=== PATIENT | male | born 1955 | race Caucasian/White ===

== ENCOUNTER 2019-07-04 11:03 | Emergency (ER) | payer OTHER, MEDICARE, MEDICAID ==
[2019-07-04] MEDS ORDERED: Sodium Chloride 0.9% 2.5 ML Syringe FLUSH PRN (11:07)
[2019-07-04] MEDS ORDERED: Sodium Chloride 0.9% 10 ML Syringe FLUSH PRN (11:07)
[2019-07-04] MEDS ORDERED: Nitroglycerin 0.4 MG Tab.SL SL PRN (11:17)
--- NOTE | 2019-07-04 11:22 | EDM.PDOC ---
ED HPI GENERAL MEDICAL PROBLEM - General Chief Complaint: Chest Pain Stated Complaint: CHEST PAIN Time Seen by Provider: 07/04/19 11:07 Source of Information: Reports: Patient History Limitations: Reports: No Limitations - History of Present Illness INITIAL COMMENTS - FREE TEXT/NARRATIVE: HISTORY AND PHYSICAL: History of present illness: Patient is a 63-year-old male presents to the ED today with concern of left- sided chest pain that has been ongoing 1 week. Patient states starting yesterday the chest pain has become more noticeable and is continuing today and he feels more short of breath. Patient states the chest pain is constant. Patient states he did take 325 mg of aspirin at 10 this morning before coming to the ED. Patient states he did have a heart attack 6 weeks ago and had a bypass surgery but is unsure of how many vessels. Patient states he had a follow -up in my not a few weeks ago and was told that he has fluid in the left side of his chest that they plan to remove at his next visit. Patient states he is unsure when his next appointment is. He states he also has a history of type 2 diabetes and hypertension. Patient denies any other symptoms or concerns. Patient denies fever, chills, or cough. Denies headache, neck stiff ness, change in vision, syncope, or near syncope. Denies nausea, vomiting, abdominal pain, diarrhea, constipation, or dysuria. Has not noted any blood in urine or stool. Patient has been eating and drinking appropriately. Review of systems: As per history of present illness and below otherwise all systems reviewed and negative. Past medical history: As per history of present illness and as reviewed below otherwise noncontributory. Surgical history: As per history of present illness and as reviewed below otherwise noncontributory. Social history: See social history for further information Family history: As per history of present illness and as reviewed below otherwise noncontributory. Physical exam: General: Patient is alert, oriented, and in no acute distress. Patient laying comfortably on exam table. HEENT: Atraumatic, normocephalic, pupils equal and reactive bilaterally, negative for conjunctival pallor or scleral icterus, mucous membranes moist, TMs normal bilaterally, throat clear, neck supple, nontender, trachea midline. No drooling or trismus noted. No meningeal signs. No hot potato voice noted. Lungs: Lung sounds are diminished on the left to auscultation but clear, chest nontender. Heart: S1S2, regular rate and rhythm without overt murmur Abdomen: Soft, nondistended, nontender. Negative for masses or hepatosplenomegaly. Negative for costovertebral tenderness. Pelvis: Stable nontender. Genitourinary: Deferred. Rectal: Deferred. Skin: Intact, warm, dry. No lesions or rashes noted. Extremities: Atraumatic, negative for cords or calf pain. Neurovascular unremarkable. Neuro: Awake, alert, oriented. Cranial nerves II through XII unremarkable. Cerebellum unremarkable. Motor and sensory unremarkable throughout. Exam nonfocal. Notes: Dr. Salas was consulted on patient and will admit to observation. Voices understanding and is agreeable to plan of care. Denies any further questions or concerns at this time. Diagnostics: CBC, CMP, UA, EKG, chest x-ray, troponin Therapeutics: (Patient took 325mg ASA at 10am before coming to ED), nitro Impression: Chest pain Left sided pleural effusion Dyspnea Plan: 1. Admit to observation to Dr. Salas Definitive disposition and diagnosis as appropriate pending reevaluation and review of above. Left Chest Pain Score (Numeric/FACES): 3 - Related Data Allergies Allergy/AdvReac Type Severity Reaction Status Date / Time bandaid Allergy Rash Uncoded 07/04/19 11:14 Home Meds: Home Meds . [Unable to Verify Home Med List] 07/04/19 [History] ED ROS GENERAL - Review of Systems Review Of Systems: Comprehensive ROS is negative, except as noted in HPI. ED EXAM, GENERAL - Physical Exam Exam: See Below (See dictation) Course - Vital Signs Last Recorded V/S: Last Vital Signs Temp Pulse 80 07/04/19 13:04 Resp 16 07/04/19 13:04 BP 114/62 07/04/19 13:04 Pulse Ox 98 07/04/19 13:04 - Orders/Labs/Meds Orders: Active Orders 24 hr Category Date Time Status Admission Status [Patient Status] [ADT] Stat ADT 07/04/19 13:22 Ordered EKG 12 Lead [EKG Documentation Completion] [RC] STAT Care 07/04/19 11:50 Active Nitroglycerin [Nitrostat] Med 07/04/19 11:17 Active 0.4 mg SL Q5M PRN Sodium Chloride 0.9% [Saline Flush] Med 07/04/19 11:07 Active 10 ml FLUSH ASDIRECTED PRN Sodium Chloride 0.9% [Saline Flush] Med 07/04/19 11:07 Active 2.5 ml FLUSH ASDIRECTED PRN Saline Lock Insert [OM.PC] Stat Oth 07/04/19 11:07 Ordered Medication Orders Nitroglycerin (Nitrostat) 0.4 mg SL Q5M PRN PRN Reason: Chest Pain Last Admin: 07/04/19 11:31 Dose: 0.4 mg Sodium Chloride (Saline Flush) 10 ml FLUSH ASDIRECTED PRN PRN Reason: Keep Vein Open Last Admin: 07/04/19 11:30 Dose: 10 ml Sodium Chloride (Saline Flush) 2.5 ml FLUSH ASDIRECTED PRN PRN Reason: Keep Vein Open Last Admin: 07/04/19 11:30 Dose: 2.5 ml Labs: Laboratory Tests 07/04/19 07/04/19 07/04/19 Range/Units 11:11 11:11 11:11 WBC 13.37 H (4.0-11.0) K/uL RBC 3.79 L (4.50-5.90) M/uL Hgb 10.1 L (13.0-17.0) g/dL Hct 33.0 L (38.0-50.0) % MCV 87.1 (80.0-98.0) fL MCH 26.6 L (27.0-32.0) pg MCHC 30.6 L (31.0-37.0) g/dL RDW Std Deviation 50.5 (28.0-62.0) fl RDW Coeff of Kelton 16 H (11.0-15.0) % Plt Count 517 H (150-400) K/uL MPV 8.60 (7.40-12.00) fL Neut % (Auto) 76.3 (48.0-80.0) % Lymph % (Auto) 9.3 L (16.0-40.0) % [place] % (Auto) 9.4 (0.0-15.0) % Eos % (Auto) 4.7 (0.0-7.0) % Baso % (Auto) 0.3 (0.0-1.5) % Neut # (Auto) 10.2 H (1.4-5.7) K/uL Lymph # (Auto) 1.2 (0.6-2.4) K/uL [place] # (Auto) 1.3 H (0.0-0.8) K/uL Eos # (Auto) 0.6 (0.0-0.7) K/uL Baso # (Auto) 0.0 (0.0-0.1) K/uL Nucleated RBC % 0.0 /100WBC Nucleated RBCs # 0 K/uL INR 1.05 Sodium 136 (136-148) mmol/L Potassium 4.3 (3.5-5.1) mmol/L Chloride 99 (98-107) mmol/L Carbon Dioxide 24.0 (21.0-32.0) mmol/L BUN 15 (7.0-18.0) mg/dL Creatinine 1.1 (0.8-1.3) mg/dL Est Cr Clr Drug Dosing 65.64 mL/min Estimated GFR (MDRD) > 60.0 ml/min Glucose 125 H (74-106) mg/dL Calcium 8.7 (8.5-10.1) mg/dL Total Bilirubin 0.4 (0.2-1.0) mg/dL AST 15 (15-37) IU/L ALT 11 L (14-63) IU/L Alkaline Phosphatase 85 (46-116) U/L Troponin I < 0.050 (0.000-0.056) ng/mL Total Protein 8.1 (6.4-8.2) g/dL Albumin 3.2 L (3.4-5.0) g/dL Globulin 4.9 H (2.6-4.0) g/dL Albumin/Globulin Ratio 0.7 L (0.9-1.6) Lipase 50 L (73-393) U/L Urine Color Urine Appearance Urine pH (5.0-8.0) Ur Specific [place] (1.001-1.035) Urine Protein (NEGATIVE) mg/dL Urine Glucose (UA) (NEGATIVE) mg/dL Urine Ketones (NEGATIVE) mg/dL Urine Occult Blood (NEGATIVE) Urine Nitrite (NEGATIVE) Urine Bilirubin (NEGATIVE) Urine Urobilinogen (<2.0) EU/dL Ur Leukocyte Esterase (NEGATIVE) 07/04/19 Range/Units 12:39 WBC (4.0-11.0) K/uL RBC (4.50-5.90) M/uL Hgb (13.0-17.0) g/dL Hct (38.0-50.0) % MCV (80.0-98.0) fL MCH (27.0-32.0) pg MCHC (31.0-37.0) g/dL RDW Std Deviation (28.0-62.0) fl RDW Coeff of Kelton (11.0-15.0) % Plt Count (150-400) K/uL MPV (7.40-12.00) fL Neut % (Auto) (48.0-80.0) % Lymph % (Auto) (16.0-40.0) % [place] % (Auto) (0.0-15.0) % Eos % (Auto) (0.0-7.0) % Baso % (Auto) (0.0-1.5) % Neut # (Auto) (1.4-5.7) K/uL Lymph # (Auto) (0.6-2.4) K/uL [place] # (Auto) (0.0-0.8) K/uL Eos # (Auto) (0.0-0.7) K/uL Baso # (Auto) (0.0-0.1) K/uL Nucleated RBC % /100WBC Nucleated RBCs # K/uL INR Sodium (136-148) mmol/L Potassium (3.5-5.1) mmol/L Chloride (98-107) mmol/L Carbon Dioxide (21.0-32.0) mmol/L BUN (7.0-18.0) mg/dL Creatinine (0.8-1.3) mg/dL Est Cr Clr Drug Dosing mL/min Estimated GFR (MDRD) ml/min Glucose (74-106) mg/dL Calcium (8.5-10.1) mg/dL Total Bilirubin (0.2-1.0) mg/dL AST (15-37) IU/L ALT (14-63) IU/L Alkaline Phosphatase (46-116) U/L Troponin I (0.000-0.056) ng/mL Total Protein (6.4-8.2) g/dL Albumin (3.4-5.0) g/dL Globulin (2.6-4.0) g/dL Albumin/Globulin Ratio (0.9-1.6) Lipase (73-393) U/L Urine Color YELLOW Urine Appearance CLEAR Urine pH 6.5 (5.0-8.0) Ur Specific [place] 1.010 (1.001-1.035) Urine Protein NEGATIVE (NEGATIVE) mg/dL Urine Glucose (UA) NEGATIVE (NEGATIVE) mg/dL Urine Ketones NEGATIVE (NEGATIVE) mg/dL Urine Occult Blood NEGATIVE (NEGATIVE) Urine Nitrite NEGATIVE (NEGATIVE) Urine Bilirubin NEGATIVE (NEGATIVE) Urine Urobilinogen 0.2 (<2.0) EU/dL Ur Leukocyte Esterase NEGATIVE (NEGATIVE) Meds: Medications Generic Name Dose Route Start Last Admin Trade Name Freq PRN Reason Stop Dose Admin Nitroglycerin 0.4 mg 07/04/19 11:17 07/04/19 11:31 Nitrostat SL 0.4 mg Q5M PRN Administration Chest Pain Sodium Chloride 10 ml 07/04/19 11:07 07/04/19 11:30 Saline Flush FLUSH 10 ml ASDIRECTED PRN Administration Keep Vein Open Sodium Chloride 2.5 ml 07/04/19 11:07 07/04/19 11:30 Saline Flush FLUSH 2.5 ml ASDIRECTED PRN Administration Keep Vein Open Discontinued Medications Generic Name Dose Route Start Last Admin Trade Name Frecasey PRN Reason Stop Dose Admin Sodium Chloride 1,000 mls @ 999 mls/hr 07/04/19 11:49 07/04/19 12:40 Normal Saline IV 07/04/19 12:49 999 mls/hr .Bolus ONE Administration Departure - Departure Time of Disposition: 13:24 Disposition: Refer to Observation Clinical Impression: Pleural effusion Chest pain Qualifiers: Chest pain type: unspecified Qualified Code(s): R07.9 - Chest pain, unspecified Dyspnea Qualifiers: Dyspnea type: unspecified Qualified Code(s): R06.00 - Dyspnea, unspecified - Discharge Information Forms: ED Department Discharge - My Orders Last 24 Hours: My Active Orders 07/04/19 11:07 Sodium Chloride 0.9% [Saline Flush] 10 ml FLUSH ASDIRECTED PRN Sodium Chloride 0.9% [Saline Flush] 2.5 ml FLUSH ASDIRECTED PRN Saline Lock Insert [OM.PC] Stat 07/04/19 11:17 Nitroglycerin [Nitrostat] 0.4 mg SL Q5M PRN 07/04/19 11:50 EKG 12 Lead [EKG Documentation Completion] [RC] STAT 07/04/19 13:22 Admission Status [Patient Status] [ADT] Stat - Assessment/Plan Last 24 Hours: My Active Orders 07/04/19 11:07 Sodium Chloride 0.9% [Saline Flush] 10 ml FLUSH ASDIRECTED PRN Sodium Chloride 0.9% [Saline Flush] 2.5 ml FLUSH ASDIRECTED PRN Saline Lock Insert [OM.PC] Stat 07/04/19 11:17 Nitroglycerin [Nitrostat] 0.4 mg SL Q5M PRN 07/04/19 11:50 EKG 12 Lead [EKG Documentation Completion] [RC] STAT 07/04/19 13:22 Admission Status [Patient Status] [ADT] Stat
[2019-07-04 11:43] LABS: BLOOD UREA NITROGEN,BUN 15 mg/dL (7.0-18.0); CHLORIDE,CL 99 mmol/L (98-107); GLUCOSE RANDOM 125 mg/dL (74-106); LIPASE 50 U/L (73-393); POTASSIUM,K 4.3 mmol/L (3.5-5.1); SODIUM,NA 136 mmol/L (136-148)
[2019-07-04] MEDS ORDERED: Sodium Chloride 0.9% 1,000 ML IV ONE (11:49)
--- NOTE | 2019-07-04 13:02 | CR ---
Chest: AP portable view of the chest was obtained. Comparison: No prior chest x-ray. Moderately large left-sided pleural effusion is seen. Right lung is clear. Heart size difficult to determine due to silhouetting from the pleural effusion. Prior sternotomy is noted. Bony structures are grossly intact. Impression: Moderately large left-sided pleural effusion. Diagnostic code #3 MTDD
== END 2019-07-04 15:40 | disposition other institution (70) ==
LOC: MW.ED 11:03
DX: J90 Pleural effusion, not elsewhere classified (principal); E11.9 Type 2 diabetes mellitus without complications; I10 Essential (primary) hypertension; Z91.048 Other nonmedicinal substance allergy status; Z95.1 Presence of aortocoronary bypass graft
CPT/HCPCS: 71045; 80053; 81003; 83690; 84484; 85025; 85610; 93005; 96360; 96361; 99285; A9270; J7040; J7030

== ENCOUNTER 2019-11-02 15:03 | Observation (INO) | payer MEDICARE, MEDICAID ==
--- NOTE | 2019-11-02 15:40 | EDM.PDOC ---
ED HPI GENERAL MEDICAL PROBLEM - General Chief Complaint: Lower Extremity Injury/Pain Stated Complaint: FEET SWOLLEN Time Seen by Provider: 11/02/19 15:36 Source of Information: Reports: Patient History Limitations: Reports: No Limitations - History of Present Illness INITIAL COMMENTS - FREE TEXT/NARRATIVE: HISTORY AND PHYSICAL: History of present illness: Patient is a 64-year-old male presents to the ED with complaint of bilateral foot swelling. Patient states he has had swelling in his feet for the past week. He reports some shortness of breath on exertion x 2-3 days. He denies chest pain, dyspnea at rest, orthopnea, cough, fevers, chills. He states he is on lasix. He was hospitalized about 6 weeks ago for pneumonia. Patient has history of CABG April 2019 on Plavix and is diabetic. Patient states that he does have a history of anemia since CABG and states he has been seen for this and his "they do not know where bleeding is coming from. " He denies history of blood transfusions. Review of systems: As per history of present illness and below otherwise all systems reviewed and negative. Past medical history: As per history of present illness and as reviewed below otherwise noncontributory. Surgical history: As per history of present illness and as reviewed below otherwise noncontributory. Social history: No reported history of drug or alcohol abuse. Family history: As per history of present illness and as reviewed below otherwise noncontributory. Physical exam: General: Patient sitting comfortably in no acute distress and nontoxic appearing HEENT: Atraumatic, normocephalic, pupils reactive, negative for conjunctival pallor or scleral icterus, mucous membranes moist, throat clear, neck supple, nontender, trachea midline. No meningeal signs. Lungs: Clear to auscultation, breath sounds equal bilaterally, chest nontender. Heart: S1S2, regular, negative for clicks, rubs, or overt murmur. Abdomen: Soft, nondistended, nontender. Negative for masses or hepatosplenomegaly. Negative for costovertebral tenderness. No rigidity, rebound , guarding. Pelvis: Stable nontender. Genitourinary: Deferred. Rectal: Hemoccult positive Extremities: Ulcerative like lesions to the right heel with healthy appearing granulation tissue. Minimal pitting edema to the ankle. There is no surrounding erythema or warmth. Atraumatic, negative for cords or calf pain. Neurovascular unremarkable. Neuro: Awake, alert, oriented. Cranial nerves II through XII unremarkable. Cerebellum unremarkable. Motor and sensory unremarkable throughout. Exam nonfocal. Notes: Diagnostics: CBC, CMP, troponin, BNP, EKG, CXR, right foot x-ray Therapeutics: 2 units RBCs Prescriptions: Impression: GI bleed, anemia, dyspnea Plan: Discussed with Dr. Tompkins patient will be admitted to observation for blood transfusion and further evaluation. Definitive disposition and diagnosis as appropriate pending reevaluation and review of above. right foot Pain Score (Numeric/FACES): 9 - Related Data Allergies Allergy/AdvReac Type Severity Reaction Status Date / Time Latex, Natural Rubber Allergy Other Verified 11/02/19 15:20 bandaid Allergy Rash Uncoded 07/04/19 11:14 lidocaine patches adhesive Allergy Other Uncoded 11/02/19 15:21 Home Meds: Home Meds Clopidogrel [Plavix] 75 mg PO DAILY 11/02/19 [History] Furosemide [Lasix] 40 mg PO BID 11/02/19 [History] Gabapentin [Neurontin] 300 mg PO BID 11/02/19 [History] Levothyroxine 75 mcg PO ACBREAKFAST 11/02/19 [History] Lisinopril [Zestril] 40 mg PO DAILY 11/02/19 [History] Metoprolol Succinate 50 mg PO DAILY 11/02/19 [History] Rosuvastatin [Crestor] 10 mg PO DAILY 11/02/19 [History] glyBURIDE [Glyburide] 10 mg PO DAILY 11/02/19 [History] metFORMIN [Glucophage] 1,000 mg PO BIDMEALS 11/02/19 [History] Past Medical History Cardiovascular History: Reports: Heart Failure, Hypertension, [place] Endocrine/Metabolic History: Reports: Diabetes, Type II - Past Surgical History Cardiovascular Surgical History: Reports: Coronary Artery Bypass, Coronary Artery Stent Musculoskeletal Surgical History: Reports: Arthroscopic Procedure, Other (See Below) Other Musculoskeletal Surgeries/Procedures:: right ankle/foot sx Social & Family History - Family History Family Medical History: Noncontributory - Tobacco Use Smoking Status *Q: Never Smoker - Recreational Drug Use Recreational Drug Use: No Review of Systems - Review of Systems Review Of Systems: Comprehensive ROS is negative, except as noted in HPI. ED EXAM, GENERAL - Physical Exam Exam: See Below (see dictation) Course - Vital Signs Last Recorded V/S: Last Vital Signs Temp 96.6 F L 11/02/19 16:50 Pulse 62 11/02/19 16:50 Resp 16 11/02/19 16:50 BP 144/54 H 11/02/19 16:50 Pulse Ox 99 11/02/19 16:50 - Orders/Labs/Meds Orders: Active Orders 24 hr Category Date Time Status Admission Status [Patient Status] [ADT] Stat ADT 11/02/19 17:16 Ordered EKG Documentation Completion [RC] STAT Care 11/02/19 15:35 Active RED BLOOD CELLS LP [BBK] Stat Lab 11/02/19 17:06 Received TYPE AND SCREEN [BBK] Stat Lab 11/02/19 17:06 Received Transfuse RBC [Transfuse Red Blood Cells] [COMM] Stat Oth 11/02/19 17:08 Ordered Labs: Laboratory Tests 11/02/19 11/02/19 11/02/19 Range/Units 16:10 16:10 16:10 WBC 5.51 (4.0-11.0) K/uL RBC 3.24 L (4.50-5.90) M/uL Hgb 7.7 L (13.0-17.0) g/dL Hct 26.3 L (38.0-50.0) % MCV 81.2 (80.0-98.0) fL MCH 23.8 L (27.0-32.0) pg MCHC 29.3 L (31.0-37.0) g/dL RDW Std Deviation 58.6 (28.0-62.0) fl RDW Coeff of Kelton 20 H (11.0-15.0) % Plt Count 263 (150-400) K/uL MPV 8.50 (7.40-12.00) fL Neut % (Auto) 60.6 (48.0-80.0) % Lymph % (Auto) 26.0 (16.0-40.0) % [place] % (Auto) 8.3 (0.0-15.0) % Eos % (Auto) 4.7 (0.0-7.0) % Baso % (Auto) 0.4 (0.0-1.5) % Neut # (Auto) 3.3 (1.4-5.7) K/uL Lymph # (Auto) 1.4 (0.6-2.4) K/uL [place] # (Auto) 0.5 (0.0-0.8) K/uL Eos # (Auto) 0.3 (0.0-0.7) K/uL Baso # (Auto) 0.0 (0.0-0.1) K/uL Nucleated RBC % 0.0 /100WBC Nucleated RBCs # 0 K/uL INR Sodium 140 (136-148) mmol/L Potassium 3.5 (3.5-5.1) mmol/L Chloride 103 (98-107) mmol/L Carbon Dioxide 29.9 (21.0-32.0) mmol/L BUN 16 (7.0-18.0) mg/dL Creatinine 1.0 (0.8-1.3) mg/dL Est Cr Clr Drug Dosing 71.25 mL/min Estimated GFR (MDRD) > 60.0 ml/min Glucose 171 H (74-106) mg/dL Calcium 8.5 (8.5-10.1) mg/dL Total Bilirubin 0.4 (0.2-1.0) mg/dL AST 22 (15-37) IU/L ALT 32 (14-63) IU/L Alkaline Phosphatase 47 (46-116) U/L Troponin I < 0.050 (0.000-0.056) ng/mL B-Natriuretic Peptide 340 H (<100) PG/ML Total Protein 6.7 (6.4-8.2) g/dL Albumin 3.3 L (3.4-5.0) g/dL Globulin 3.4 (2.6-4.0) g/dL Albumin/Globulin Ratio 1.0 (0.9-1.6) 11/02/19 Range/Units 16:10 WBC (4.0-11.0) K/uL RBC (4.50-5.90) M/uL Hgb (13.0-17.0) g/dL Hct (38.0-50.0) % MCV (80.0-98.0) fL MCH (27.0-32.0) pg MCHC (31.0-37.0) g/dL RDW Std Deviation (28.0-62.0) fl RDW Coeff of [place] (11.0-15.0) % Plt Count (150-400) K/uL MPV (7.40-12.00) fL Neut % (Auto) (48.0-80.0) % Lymph % (Auto) (16.0-40.0) % [place] % (Auto) (0.0-15.0) % Eos % (Auto) (0.0-7.0) % Baso % (Auto) (0.0-1.5) % Neut # (Auto) (1.4-5.7) K/uL Lymph # (Auto) (0.6-2.4) K/uL [place] # (Auto) (0.0-0.8) K/uL Eos # (Auto) (0.0-0.7) K/uL Baso # (Auto) (0.0-0.1) K/uL Nucleated RBC % /100WBC Nucleated RBCs # K/uL INR 1.03 Sodium (136-148) mmol/L Potassium (3.5-5.1) mmol/L Chloride (98-107) mmol/L Carbon Dioxide (21.0-32.0) mmol/L BUN (7.0-18.0) mg/dL Creatinine (0.8-1.3) mg/dL Est Cr Clr Drug Dosing mL/min Estimated GFR (MDRD) ml/min Glucose (74-106) mg/dL Calcium (8.5-10.1) mg/dL Total Bilirubin (0.2-1.0) mg/dL AST (15-37) IU/L ALT (14-63) IU/L Alkaline Phosphatase (46-116) U/L Troponin I (0.000-0.056) ng/mL B-Natriuretic Peptide (<100) PG/ML Total Protein (6.4-8.2) g/dL Albumin (3.4-5.0) g/dL Globulin (2.6-4.0) g/dL Albumin/Globulin Ratio (0.9-1.6) Departure - Departure Time of Disposition: 17:20 Disposition: Refer to Observation Condition: Good Clinical Impression: GI bleed, Anemia Dyspnea Qualifiers: Dyspnea type: unspecified Qualified Code(s): R06.00 - Dyspnea, unspecified - Discharge Information Referrals: PCP,None [Primary Care Provider] - Forms: ED Department Discharge Sepsis Event Note - Evaluation Sepsis Screening Result: No Definite Risk - Focused Exam Vital Signs: Vital Signs Temp Pulse Resp BP Pulse Ox 11/02/19 16:50 96.6 F L 62 16 144/54 H 99 11/02/19 15:38 96.6 F L 65 18 157/60 H 100 11/02/19 15:18 96.5 F L 69 18 158/52 H 99 Date Exam was Performed: 11/02/19 Time Exam was Performed: 17:18 - My Orders Last 24 Hours: My Active Orders 11/02/19 15:35 EKG Documentation Completion [RC] STAT 11/02/19 17:06 RED BLOOD CELLS LP [BBK] Stat TYPE AND SCREEN [BBK] Stat 11/02/19 17:08 Transfuse RBC [Transfuse Red Blood Cells] [COMM] Stat 11/02/19 17:16 Admission Status [Patient Status] [ADT] Stat - Assessment/Plan Last 24 Hours: My Active Orders 11/02/19 15:35 EKG Documentation Completion [RC] STAT 11/02/19 17:06 RED BLOOD CELLS LP [BBK] Stat TYPE AND SCREEN [BBK] Stat 11/02/19 17:08 Transfuse RBC [Transfuse Red Blood Cells] [COMM] Stat 11/02/19 17:16 Admission Status [Patient Status] [ADT] Stat
[2019-11-02 16:51] LABS: BLOOD UREA NITROGEN,BUN 16 mg/dL (7.0-18.0); CARBON DIOXIDE,CO2 29.9 mmol/L (21.0-32.0); CHLORIDE,CL 103 mmol/L (98-107); GLUCOSE RANDOM 171 mg/dL (74-106); POTASSIUM,K 3.5 mmol/L (3.5-5.1); SODIUM,NA 140 mmol/L (136-148)
--- NOTE | 2019-11-02 17:02 | CR ---
Chest: 2 views of the chest were obtained. Comparison: Prior chest x-ray of 07/26/19. Mild blunting of the lateral left costophrenic angle is seen. Lungs otherwise are clear. Heart size and mediastinum are normal. Sternotomy wires are seen. Mild degenerative change is scattered within the spine. Impression: 1. Blunting of the lateral left costophrenic angle either due to minimal residual pleural effusion or development of pleural thickening. 2. Nothing acute is otherwise seen. Diagnostic code #2 Study was dictated in MDT
--- NOTE | 2019-11-02 17:02 | CR ---
Right foot: 2 views of the right foot were obtained. Comparison: No previous right foot study. Bony structures are somewhat osteopenic. No discrete fracture or other bony abnormality is appreciated. Old fracture deformity noted within the distal tibia containing a single orthopedic screw. Fusion is noted at the tibiotalar joint. Impression: 1. Osteopenia. Fusion of the tibiotalar joint. 2. Nothing acute is definitely seen. Diagnostic code #2 Study was dictated in MDT
[2019-11-02] MEDS ORDERED: Ondansetron 4 MG/2 ML SDV IVPUSH PRN (17:58)
[2019-11-02] MEDS ORDERED: Pantoprazole 80 MG in Sodium Chloride 0.9% 10 ML IV ONE (18:17)
--- NOTE | 2019-11-02 18:35 | PCM.HP.2 ---
H&P History of Present Illness - General Date of Service: 11/02/19 Admit Problem/Dx: Admission Diagnosis/Problem Admission Diagnosis/Problem Anemia Source of Information: Patient History Limitations: Reports: No Limitations - History of Present Illness Initial Comments - Free Text/Narative: 64-year-old male presented complaining of shortness of breath and bilateral leg swelling for the past 1 week. He has a PMH of AR s/p CABG, CHF, DM type 2 and HTN. He has also noted a 5 lbs weight gain over the past 1 week as well. He also complains of right foot ulcers that was first noticed 1.5 months ago and has been applying antibiotic ointment. Patient denied having any fevers, chills , headache, sore throat, cough, bloody stools or blood in urine. He does complain of pain in right foot and numbness in b/l legs. In the ER, hgb was 7.7 and Hemoccult test was positive. Troponin was negative. BNP 340. CXR showed minimal left pleural effusion. PRBC's 2 units type and crossed. Admitted for further evaluation and treatment. right foot Pain Score (Numeric/FACES): 9 - Related Data Allergies/Adverse Reactions: Allergies Allergy/AdvReac Type Severity Reaction Status Date / Time niacin Allergy Severe Hives Verified 11/02/19 19:48 Latex, Natural Rubber Allergy Other Verified 11/02/19 19:47 bandaid Allergy Rash Uncoded 11/02/19 19:47 lidocaine patches adhesive Allergy Other Uncoded 11/02/19 19:47 Home Medications: Home Meds Clopidogrel [Plavix] 75 mg PO DAILY 11/02/19 [History] Furosemide [Lasix] 40 mg PO BID 11/02/19 [History] Gabapentin [Neurontin] 300 mg PO BID 11/02/19 [History] Levothyroxine 75 mcg PO ACBREAKFAST 11/02/19 [History] Levothyroxine 75 mcg PO ACBREAKFAST 11/02/19 [History] Lisinopril [Zestril] 40 mg PO DAILY 11/02/19 [History] Metoprolol Succinate 50 mg PO DAILY 11/02/19 [History] Rosuvastatin [Crestor] 10 mg PO DAILY 11/02/19 [History] glyBURIDE [Glyburide] 10 mg PO DAILY 11/02/19 [History] metFORMIN [Glucophage] 1,000 mg PO BIDMEALS 11/02/19 [History] Past Medical History Cardiovascular History: Reports: Heart Failure, Hypertension, AR Endocrine/Metabolic History: Reports: Diabetes, Type II - Past Surgical History Cardiovascular Surgical History: Reports: Coronary Artery Bypass, Coronary Artery Stent Musculoskeletal Surgical History: Reports: Arthroscopic Procedure, Other (See Below) Other Musculoskeletal Surgeries/Procedures:: right ankle/foot sx Social & Family History - Family History Family Medical History: Noncontributory - Tobacco Use Smoking Status *Q: Never Smoker - Recreational Drug Use Recreational Drug Use: No H&P Review of Systems - Review of Systems: Review Of Systems: Comprehensive ROS is negative, except as noted in HPI. Exam - Exam Exam: See Below - Vital Signs Vital Signs: Last Vital Signs Temp 96.6 F L 11/02/19 16:50 Pulse 62 11/02/19 16:50 Resp 16 11/02/19 16:50 BP 144/54 H 11/02/19 16:50 Pulse Ox 99 11/02/19 16:50 Weight: 200 lb 9.93 oz - Exam General: Alert, Oriented, Cooperative, Other (NAD) HEENT: Conjunctiva Clear, EOMI, Hearing Intact, Posterior Pharynx Clear, Pupils Equal, Pupils Reactive Neck: Supple, Trachea Midline Lungs: Normal Respiratory Effort, Other (mild rales in b/l bases) Cardiovascular: Regular Rate, Regular Rhythm GI/Abdominal Exam: Normal Bowel Sounds, Soft, Non-Tender, No Distention Extremities: Other (Right Foot: 2 ulcers on sole, 2 cm x 1 cm with brown eschar) Skin: Other (Pale) Neurological: Cranial Nerves Intact, Strength Equal Bilateral, Normal Speech, Normal Tone Neuro Extensive - Mental Status: Alert, Oriented x3, Normal Mood/Affect Psychiatric: Alert, Normal Affect, Normal Mood - Patient Data Lab Results Last 24 hrs: Laboratory Results - last 24 hr 11/02/19 11/02/19 11/02/19 Range/Units 16:10 16:10 16:10 WBC 5.51 (4.0-11.0) K/uL RBC 3.24 L (4.50-5.90) M/uL Hgb 7.7 L (13.0-17.0) g/dL Hct 26.3 L (38.0-50.0) % MCV 81.2 (80.0-98.0) fL MCH 23.8 L (27.0-32.0) pg MCHC 29.3 L (31.0-37.0) g/dL RDW Std Deviation 58.6 (28.0-62.0) fl RDW Coeff of Kelton 20 H (11.0-15.0) % Plt Count 263 (150-400) K/uL MPV 8.50 (7.40-12.00) fL Neut % (Auto) 60.6 (48.0-80.0) % Lymph % (Auto) 26.0 (16.0-40.0) % Towns % (Auto) 8.3 (0.0-15.0) % Eos % (Auto) 4.7 (0.0-7.0) % Baso % (Auto) 0.4 (0.0-1.5) % Neut # (Auto) 3.3 (1.4-5.7) K/uL Lymph # (Auto) 1.4 (0.6-2.4) K/uL Towns # (Auto) 0.5 (0.0-0.8) K/uL Eos # (Auto) 0.3 (0.0-0.7) K/uL Baso # (Auto) 0.0 (0.0-0.1) K/uL Nucleated RBC % 0.0 /100WBC Nucleated RBCs # 0 K/uL INR Sodium 140 (136-148) mmol/L Potassium 3.5 (3.5-5.1) mmol/L Chloride 103 (98-107) mmol/L Carbon Dioxide 29.9 (21.0-32.0) mmol/L BUN 16 (7.0-18.0) mg/dL Creatinine 1.0 (0.8-1.3) mg/dL Est Cr Clr Drug Dosing 71.25 mL/min Estimated GFR (MDRD) > 60.0 ml/min Glucose 171 H (74-106) mg/dL Calcium 8.5 (8.5-10.1) mg/dL Total Bilirubin 0.4 (0.2-1.0) mg/dL AST 22 (15-37) IU/L ALT 32 (14-63) IU/L Alkaline Phosphatase 47 (46-116) U/L Troponin I < 0.050 (0.000-0.056) ng/mL B-Natriuretic Peptide 340 H (<100) PG/ML Total Protein 6.7 (6.4-8.2) g/dL Albumin 3.3 L (3.4-5.0) g/dL Globulin 3.4 (2.6-4.0) g/dL Albumin/Globulin Ratio 1.0 (0.9-1.6) Blood Type Antibody Screen Crossmatch 11/02/19 11/02/19 Range/Units 16:10 17:06 WBC (4.0-11.0) K/uL RBC (4.50-5.90) M/uL Hgb (13.0-17.0) g/dL Hct (38.0-50.0) % MCV (80.0-98.0) fL MCH (27.0-32.0) pg MCHC (31.0-37.0) g/dL RDW Std Deviation (28.0-62.0) fl RDW Coeff of Kelton (11.0-15.0) % Plt Count (150-400) K/uL MPV (7.40-12.00) fL Neut % (Auto) (48.0-80.0) % Lymph % (Auto) (16.0-40.0) % Towns % (Auto) (0.0-15.0) % Eos % (Auto) (0.0-7.0) % Baso % (Auto) (0.0-1.5) % Neut # (Auto) (1.4-5.7) K/uL Lymph # (Auto) (0.6-2.4) K/uL Towns # (Auto) (0.0-0.8) K/uL Eos # (Auto) (0.0-0.7) K/uL Baso # (Auto) (0.0-0.1) K/uL Nucleated RBC % /100WBC Nucleated RBCs # K/uL INR 1.03 Sodium (136-148) mmol/L Potassium (3.5-5.1) mmol/L Chloride (98-107) mmol/L Carbon Dioxide (21.0-32.0) mmol/L BUN (7.0-18.0) mg/dL Creatinine (0.8-1.3) mg/dL Est Cr Clr Drug Dosing mL/min Estimated GFR (MDRD) ml/min Glucose (74-106) mg/dL Calcium (8.5-10.1) mg/dL Total Bilirubin (0.2-1.0) mg/dL AST (15-37) IU/L ALT (14-63) IU/L Alkaline Phosphatase (46-116) U/L Troponin I (0.000-0.056) ng/mL B-Natriuretic Peptide (<100) PG/ML Total Protein (6.4-8.2) g/dL Albumin (3.4-5.0) g/dL Globulin (2.6-4.0) g/dL Albumin/Globulin Ratio (0.9-1.6) Blood Type A POSITIVE Antibody Screen NEGATIVE Crossmatch See Detail Result Diagrams: 11/02/19 16:10 11/02/19 16:10 Sepsis Event Note - Evaluation Sepsis Screening Result: No Definite Risk - Focused Exam Vital Signs: Vital Signs Temp Pulse Resp BP Pulse Ox 11/02/19 16:50 96.6 F L 62 16 144/54 H 99 11/02/19 15:38 96.6 F L 65 18 157/60 H 100 11/02/19 15:18 96.5 F L 69 18 158/52 H 99 Date Exam was Performed: 11/02/19 Time Exam was Performed: 20:41 Problem List Initiated/Reviewed/Updated: Yes Orders Last 24hrs: Active Orders 24 hr Category Date Time Status Admission Status [Patient Status] [ADT] Stat ADT 11/02/19 17:16 Active Accu Check [Blood Glucose Check, Bedside] [RC] TIDAC Care 11/02/19 18:19 Active Antiembolic Devices [RC] PER UNIT ROUTINE Care 11/02/19 17:59 Active EKG Documentation Completion [RC] STAT Care 11/02/19 15:35 Active Notify Provider Consults [RC] ASDIRECTED Care 11/02/19 18:29 Active Oxygen Therapy [RC] PRN Care 11/02/19 17:59 Active Telemetry Monitoring [Cardiac Monitoring] [RC] . Care 11/02/19 18:06 Active DIRECTED Up ad Ludy [RC] ASDIRECTED Care 11/02/19 17:58 Active VTE/DVT Education [RC] PER UNIT ROUTINE Care 11/02/19 17:59 Active Vital Signs [RC] Q4H Care 11/02/19 17:59 Active Consult to Physician [CONS] Stat Cons 11/02/19 18:27 Active Consult to Wound Care Services [CONS] Routine Cons 11/02/19 18:18 Active Nothing per Oral Now Diet [DIET] Diet 11/02/19 Dinner Active B-TYPE NATRIURETIC PEPTIDE,BNP [CHEM] AM Lab 11/03/19 05:11 Ordered CBC WITH AUTO DIFF [HEME] AM Lab 11/03/19 05:11 Ordered COMPREHENSIVE METABOLIC PN,CMP [CHEM] AM Lab 11/03/19 05:11 Ordered HEMOGLOBIN/HEMATOCRIT,HH [HEME] Routine Lab 11/02/19 18:27 Ordered RED BLOOD CELLS LP [BBK] Stat Lab 11/02/19 17:06 Results TYPE AND SCREEN [BBK] Stat Lab 11/02/19 17:06 Results Insulin Aspart [NovoLOG] Med 11/03/19 07:30 Active See Protocol SUBCUT TIDAC Ondansetron [Zofran] Med 11/02/19 17:58 Active 4 mg IVPUSH Q4H PRN Pantoprazole [ProTONIX IV] 40 mg Med 11/03/19 09:00 Active Sodium Chloride 0.9% [Normal Saline] 10 ml IV BID Sequential Compression Device [OM.PC] Per Unit Routine Oth 11/02/19 17:59 Ordered Transfuse RBC [Transfuse Red Blood Cells] [COMM] Stat Oth 11/02/19 17:08 Ordered Resuscitation Status Routine Resus Stat 11/02/19 17:58 Ordered Medication Orders Pantoprazole Sodium 40 mg/ (Sodium Chloride) 10 mls @ 300 mls/hr IV BID JANINE Insulin Aspart (Novolog) 0 unit SUBCUT TIDAC JANINE; Protocol Ondansetron HCl (Zofran) 4 mg IVPUSH Q4H PRN PRN Reason: Nausea Assessment/Plan Comment:: Assessment and Plan: 1. Acute symptomatic anemia secondary to GI bleed: - Admit to med/surg. Vital signs stable. Transfuse 2 units PRBC's, NPO and IV PPI. General surgery consulted, appreciate recommendations. Will check post- transfusion H/H 1 hour after transfusion complete. Will administer IV lasix 20 mg after each unit of PRBC. Will hold plavix. Will check iron level and H. pylori stool antigen. 2. Right foot ulcers: - Consult wound care. 3. Diabetes mellitus type 2: - ADA diet, SSI. 4. Past medical history of AR s/p CABG with stents, CHF and HTN. 5. DVT prophylaxis: SCD's.
[2019-11-02] MEDS ORDERED: Furosemide 20 MG/2 ML VIAL IVPUSH ONE (18:36)
[2019-11-02] MEDS ORDERED: Gabapentin 300 MG Cap PO SCH (21:00)
[2019-11-02] MEDS: Morphine 2 MG/ML Syringe IVPUSH PRN (21:07)
--- NOTE | 2019-11-02 21:42 | PCM.SN ---
- Free Text/Narrative Note: pt seen, chart reviewed; asymptomatic anemia, h/h 7.7, on plavix from CABG (?) 6 wks ago; denied BRBPR/black tarry stool/wt loss without intention/gross hematuria/hemoptesis; would transfuse to h/h 10, 2 large bore iv access, monitor urine output; NM X 2, 04/2019 and 08/2019, pt is 6 wks from NM, not a candidate for any elective procedure; no plan for endoscopy study on this admission; will sign off, recall if queston; thanks for the consult and care of this present gentleman; [id number]
[2019-11-02] MEDS ORDERED: hydrALAZINE 20 MG/ML SDV IVPUSH ONE (21:45)
--- NOTE | 2019-11-02 22:53 | HP ---
DATE OF : 1955 PRIMARY CARE PHYSICIAN: None PCP Consult was called, patient was seen shortly after. REASON FOR CONSULTATION: Concerning question is GI bleeding. HISTORY OF PRESENT ILLNESS: The patient is 64 years old gentleman seen in the emergency room for short of breath. Of note, the patient had similar instance 4 months ago and was noted to have pleural effusion. The patient was transferred out and at this time in the emergency room, patient complains of shortness of breath and leg swelling. He was admitted for further management and the patient was noted to be with hemoglobin of 7.7 and hemoccult was positive. Surgery was then consulted. Currently, the patient denied chest pain. Denied black tarry stool, bright red blood per rectum. Denied hematuria, hemoptysis. PAST MEDICAL HISTORY: Significant for AL 2 times in April and August 2019, congestive heart failure, diabetic and hypertension. ALLERGIES: Please refer to Nursing for details. MEDICATIONS: Please refer to Nursing for details. SURGICAL HISTORY: Coronary artery bypass graft. FAMILY HISTORY: Noncontributory. SOCIAL HISTORY: Past smoker. PHYSICAL EXAMINATION: GENERAL: A very pleasant gentleman, on facial mask because of virus pandemic, in no acute distress. HEENT: Normocephalic and atraumatic. Sclerae anicteric. LUNGS: Clear to auscultation. HEART: Regular rate and rhythm. ABDOMEN: Soft, nondistended. No pulsating tender midline abdominal structure. No epigastric pain. LABORATORY DATA: Laboratory values upon consultation, BNP was 340. White count of 6, H and H of 7.7 and 26, platelets 263. Chest x-ray suggests left pleural effusion. INR is 1.0. IMPRESSION: Anemic to 7.7. With the patient on Plavix, there is a possibility of blood loss secondary to anticoagulation or there is also possibility for hemoglobin not produced secondary to major illness. The patient denied any black stool or bright red blood per rectum or hematuria. Suggests that this if it is anemic due to blood loss, it is a microscopic process not a macro. With the patient 6 weeks, not even 2 months from his AL, the patient is not a candidate for any elective procedure unless it is a life-threatening emergency. With this situation, no hard evidence of gross blood loss, I agree with transfusion of blood, H and H above 10 and 2 large-bore IV access and monitor strict in and out. Unless there is dramatic change in the clinical presentation, there is no plan to do an endoscopy study on this gentleman. Also in light of the fact there is no hard evidence of macroscopic blood loss, we will transfuse and monitor anemic either from the aspect of blood loss or from the aspect of non- production. For the time being, transfuse patient and monitor in an out and maybe followup 1 to 2 months later, repeat blood draw or possibly may have Hematology/Oncology consult for nonproductive anemia. We will sign off and recall if question. ENMANUEL / STAN /[id number]
[2019-11-02] MEDS ORDERED: Acetaminophen 325 MG Tab PO PRN (23:28)
[2019-11-02] MEDS ORDERED: 50% Dextrose in Water 50 ML Syringe IVPUSH PRN (23:30)
[2019-11-02] MEDS: Furosemide 20 MG/2 ML VIAL IVPUSH SCH (23:45)
[2019-11-03] MEDS: Furosemide 20 MG/2 ML VIAL IVPUSH ONE ×2 (01:25→03:46)
[2019-11-03] MEDS: Furosemide 20 MG/2 ML VIAL IVPUSH SCH ×2 (03:46→04:02)
[2019-11-03] MEDS: Morphine 2 MG/ML Syringe IVPUSH PRN ×3 (03:47→16:16)
[2019-11-03 05:22] LABS: BLOOD UREA NITROGEN,BUN 13 mg/dL (7.0-18.0); CARBON DIOXIDE,CO2 32.1 mmol/L (21.0-32.0); CHLORIDE,CL 106 mmol/L (98-107); GLUCOSE RANDOM 110 mg/dL (74-106); POTASSIUM,K 3.4 mmol/L (3.5-5.1); SODIUM,NA 145 mmol/L (136-148)
[2019-11-03] MEDS ORDERED: Levothyroxine 75 MCG Tab PO SCH (07:30)
[2019-11-03] MEDS ORDERED: Metoprolol Succinate 50 MG Tab.ER PO SCH (09:00)
[2019-11-03] MEDS ORDERED: Pantoprazole 40 MG in Sodium Chloride 0.9% 10 ML IV SCH (09:00)
[2019-11-03] MEDS ORDERED: Pneumococcal 23-Valent Conjugate Vaccine 0.5 ML Syringe IM ONE ×2 (09:00→17:45)
[2019-11-03] MEDS ORDERED: Insulin Detemir 100 Units/ML 3 ML Pen SUBCUT SCH (09:00)
[2019-11-03] MEDS: Insulin Aspart 100 Units/ML 3 ML Pen SUBCUT SCH ×3 (09:11→17:46)
--- NOTE | 2019-11-03 09:11 | PCM.PN ---
- General Info Date of Service: 11/03/19 Subjective Update: Patient reports shortness of breath has improved after blood transfusion. Continues to complain of pain in right foot. Reports black stool this morning. - Patient Data Vitals - Most Recent: Last Vital Signs Temp 98.3 F 11/03/19 07:30 Pulse 61 11/03/19 08:54 Resp 18 11/03/19 07:30 BP 177/75 H 11/03/19 08:54 Pulse Ox 96 11/03/19 07:30 Weight - Most Recent: 200 lb 9.93 oz I&O - Last 24 Hours: Intake & Output 11/02/19 11/03/19 11/03/19 22:59 06:59 14:59 Intake Total 8 692 Output Total 1400 Balance 8 -708 Lab Results Last 24 Hours: Laboratory Results - last 24 hr 11/02/19 11/02/19 11/02/19 Range/Units 16:10 16:10 16:10 WBC 5.51 (4.0-11.0) K/uL RBC 3.24 L (4.50-5.90) M/uL Hgb 7.7 L (13.0-17.0) g/dL Hct 26.3 L (38.0-50.0) % MCV 81.2 (80.0-98.0) fL MCH 23.8 L (27.0-32.0) pg MCHC 29.3 L (31.0-37.0) g/dL RDW Std Deviation 58.6 (28.0-62.0) fl RDW Coeff of Kelton 20 H (11.0-15.0) % Plt Count 263 (150-400) K/uL MPV 8.50 (7.40-12.00) fL Neut % (Auto) 60.6 (48.0-80.0) % Lymph % (Auto) 26.0 (16.0-40.0) % Brule % (Auto) 8.3 (0.0-15.0) % Eos % (Auto) 4.7 (0.0-7.0) % Baso % (Auto) 0.4 (0.0-1.5) % Neut # (Auto) 3.3 (1.4-5.7) K/uL Lymph # (Auto) 1.4 (0.6-2.4) K/uL Brule # (Auto) 0.5 (0.0-0.8) K/uL Eos # (Auto) 0.3 (0.0-0.7) K/uL Baso # (Auto) 0.0 (0.0-0.1) K/uL Nucleated RBC % 0.0 /100WBC Nucleated RBCs # 0 K/uL INR Sodium 140 (136-148) mmol/L Potassium 3.5 (3.5-5.1) mmol/L Chloride 103 (98-107) mmol/L Carbon Dioxide 29.9 (21.0-32.0) mmol/L BUN 16 (7.0-18.0) mg/dL Creatinine 1.0 (0.8-1.3) mg/dL Est Cr Clr Drug Dosing 71.25 mL/min Estimated GFR (MDRD) > 60.0 ml/min Glucose 171 H (74-106) mg/dL Calcium 8.5 (8.5-10.1) mg/dL Iron (50-175) ug/dL TIBC (250-450) ug/dL % Saturation (20-55) % Transferrin (200-400) ug/dL Ferritin (26-388) ng/mL Total Bilirubin 0.4 (0.2-1.0) mg/dL AST 22 (15-37) IU/L ALT 32 (14-63) IU/L Alkaline Phosphatase 47 (46-116) U/L Troponin I < 0.050 (0.000-0.056) ng/mL B-Natriuretic Peptide 340 H (<100) PG/ML Total Protein 6.7 (6.4-8.2) g/dL Albumin 3.3 L (3.4-5.0) g/dL Globulin 3.4 (2.6-4.0) g/dL Albumin/Globulin Ratio 1.0 (0.9-1.6) Blood Type Antibody Screen Crossmatch 11/02/19 11/02/19 11/03/19 Range/Units 16:10 17:06 04:52 WBC 6.41 (4.0-11.0) K/uL RBC 4.01 L (4.50-5.90) M/uL Hgb 10.0 L (13.0-17.0) g/dL Hct 32.9 L (38.0-50.0) % MCV 82.0 (80.0-98.0) fL MCH 24.9 L (27.0-32.0) pg MCHC 30.4 L (31.0-37.0) g/dL RDW Std Deviation 55.3 (28.0-62.0) fl RDW Coeff of Kelton 19 H (11.0-15.0) % Plt Count 263 (150-400) K/uL MPV 8.60 (7.40-12.00) fL Neut % (Auto) 56.6 (48.0-80.0) % Lymph % (Auto) 28.1 (16.0-40.0) % Brule % (Auto) 9.2 (0.0-15.0) % Eos % (Auto) 5.5 (0.0-7.0) % Baso % (Auto) 0.6 (0.0-1.5) % Neut # (Auto) 3.6 (1.4-5.7) K/uL Lymph # (Auto) 1.8 (0.6-2.4) K/uL Brule # (Auto) 0.6 (0.0-0.8) K/uL Eos # (Auto) 0.4 (0.0-0.7) K/uL Baso # (Auto) 0.0 (0.0-0.1) K/uL Nucleated RBC % 0.0 /100WBC Nucleated RBCs # 0 K/uL INR 1.03 Sodium (136-148) mmol/L Potassium (3.5-5.1) mmol/L Chloride (98-107) mmol/L Carbon Dioxide (21.0-32.0) mmol/L BUN (7.0-18.0) mg/dL Creatinine (0.8-1.3) mg/dL Est Cr Clr Drug Dosing mL/min Estimated GFR (MDRD) ml/min Glucose (74-106) mg/dL Calcium (8.5-10.1) mg/dL Iron (50-175) ug/dL TIBC (250-450) ug/dL % Saturation (20-55) % Transferrin (200-400) ug/dL Ferritin (26-388) ng/mL Total Bilirubin (0.2-1.0) mg/dL AST (15-37) IU/L ALT (14-63) IU/L Alkaline Phosphatase (46-116) U/L Troponin I (0.000-0.056) ng/mL B-Natriuretic Peptide (<100) PG/ML Total Protein (6.4-8.2) g/dL Albumin (3.4-5.0) g/dL Globulin (2.6-4.0) g/dL Albumin/Globulin Ratio (0.9-1.6) Blood Type A POSITIVE Antibody Screen NEGATIVE Crossmatch See Detail 11/03/19 11/03/19 11/03/19 Range/Units 04:52 04:52 04:52 WBC (4.0-11.0) K/uL RBC (4.50-5.90) M/uL Hgb (13.0-17.0) g/dL Hct (38.0-50.0) % MCV (80.0-98.0) fL MCH (27.0-32.0) pg MCHC (31.0-37.0) g/dL RDW Std Deviation (28.0-62.0) fl RDW Coeff of Kelton (11.0-15.0) % Plt Count (150-400) K/uL MPV (7.40-12.00) fL Neut % (Auto) (48.0-80.0) % Lymph % (Auto) (16.0-40.0) % Brule % (Auto) (0.0-15.0) % Eos % (Auto) (0.0-7.0) % Baso % (Auto) (0.0-1.5) % Neut # (Auto) (1.4-5.7) K/uL Lymph # (Auto) (0.6-2.4) K/uL Brule # (Auto) (0.0-0.8) K/uL Eos # (Auto) (0.0-0.7) K/uL Baso # (Auto) (0.0-0.1) K/uL Nucleated RBC % /100WBC Nucleated RBCs # K/uL INR Sodium 145 (136-148) mmol/L Potassium 3.4 L (3.5-5.1) mmol/L Chloride 106 (98-107) mmol/L Carbon Dioxide 32.1 H (21.0-32.0) mmol/L BUN 13 (7.0-18.0) mg/dL Creatinine 1.1 (0.8-1.3) mg/dL Est Cr Clr Drug Dosing 64.77 mL/min Estimated GFR (MDRD) > 60.0 ml/min Glucose 110 H (74-106) mg/dL Calcium 8.9 (8.5-10.1) mg/dL Iron 113 (50-175) ug/dL TIBC 421 (250-450) ug/dL % Saturation 26.84 (20-55) % Transferrin 295 (200-400) ug/dL Ferritin 12 L (26-388) ng/mL Total Bilirubin 1.3 H (0.2-1.0) mg/dL AST 25 (15-37) IU/L ALT 34 (14-63) IU/L Alkaline Phosphatase 53 (46-116) U/L Troponin I (0.000-0.056) ng/mL B-Natriuretic Peptide 508 H (<100) PG/ML Total Protein 6.8 (6.4-8.2) g/dL Albumin 3.5 (3.4-5.0) g/dL Globulin 3.3 (2.6-4.0) g/dL Albumin/Globulin Ratio 1.1 (0.9-1.6) Blood Type Antibody Screen Crossmatch Med Orders - Current: Current Medications Acetaminophen (Tylenol) 650 mg PO Q6H PRN PRN Reason: Pain Last Admin: 11/03/19 00:04 Dose: 650 mg Dextrose/Water (Dextrose 50% In Water) 25 ml IVPUSH ONETIME PRN PRN Reason: Hypoglycemia Pantoprazole Sodium 40 mg/ (Sodium Chloride) 10 mls @ 300 mls/hr IV BID [facility] Last Admin: 11/03/19 08:56 Dose: 300 mls/hr Insulin Aspart (Novolog) 0 unit SUBCUT TIDAC [facility]; Protocol Insulin Detemir (Levemir) 10 unit SUBCUT BID [facility] Levothyroxine Sodium (Levothyroxine) 75 mcg PO ACBREAKFAST [facility] Last Admin: 11/03/19 08:56 Dose: 75 mcg Metoprolol Succinate (Toprol Xl) 50 mg PO DAILY [facility] Last Admin: 03/19/20 08:54 Dose: 50 mg Morphine Sulfate (Morphine) 2 mg IVPUSH Q4H PRN PRN Reason: Pain Last Admin: 11/03/19 03:47 Dose: 2 mg Ondansetron HCl (Zofran) 4 mg IVPUSH Q4H PRN PRN Reason: Nausea Last Admin: 11/02/19 21:08 Dose: 4 mg Discontinued Medications Furosemide (Lasix) 20 mg IVPUSH ONETIME ONE Stop: 11/02/19 18:37 Last Admin: 11/02/19 23:46 Dose: Not Given Furosemide (Lasix) 20 mg IVPUSH ONETIME ONE Stop: 11/02/19 18:38 Last Admin: 11/03/19 03:46 Dose: 20 mg Furosemide (Lasix) 20 mg IVPUSH Q4H JANINE Stop: 11/03/19 03:31 Last Admin: 11/03/19 04:02 Dose: Not Given Gabapentin (Neurontin) 300 mg PO BID JANINE Hydralazine HCl (Apresoline) 20 mg IVPUSH ONETIME ONE Stop: 11/02/19 21:46 Last Admin: 11/03/19 01:25 Dose: Not Given Pantoprazole Sodium 80 mg/ (Sodium Chloride) 10 mls @ 300 mls/hr IV NOW ONE Stop: 11/02/19 18:18 Last Admin: 11/02/19 20:02 Dose: 300 mls/hr Influenza Virus Vaccine (Pharmacy To Dose - Influenza Vaccine) 1 each IM ONETIME ONE Stop: 11/02/19 20:36 Influenza Virus Vaccine (Fluzone High-Dose 2018- Syringe) 180 mcg IM .ONCE ONE Stop: 11/03/19 09:01 Pneumococcal Polyvalent Vaccine (Pneumovax 23) 25 mcg IM .ONCE ONE Stop: 11/03/19 09:01 - Exam General: Alert, Oriented, Cooperative, No Acute Distress Lungs: Clear to Auscultation, Normal Respiratory Effort Cardiovascular: Regular Rate, Regular Rhythm GI/Abdominal Exam: Normal Bowel Sounds, Soft, Non-Tender, No Distention Extremities: Other (Right foot: 2 ulcers on sole, 2 cm x 1 cm with brown eschar. ) Sepsis Event Note - Evaluation Sepsis Screening Result: No Definite Risk - Focused Exam Vital Signs: Vital Signs Temp Temp Pulse Pulse Resp BP BP 11/03/19 08:54 61 177/75 H 11/03/19 07:30 98.3 F 65 18 119/65 11/03/19 04:36 97.7 F 63 18 163/71 H 11/03/19 03:36 96.8 F L 58 L 18 167/74 H 11/03/19 00:29 97.7 F 61 18 154/67 H 11/03/19 00:14 97.9 F 60 18 155/70 H 11/02/19 23:40 97.9 F 60 18 162/70 H 11/02/19 22:00 97.2 F 61 18 143/67 H Pulse Ox 11/03/19 08:54 11/03/19 07:30 96 11/03/19 04:36 95 11/03/19 03:36 95 11/03/19 00:29 97 11/03/19 00:14 11/02/19 23:40 97 11/02/19 22:00 99 Date Exam was Performed: 11/03/19 Time Exam was Performed: 12:00 - Problem List Review Problem List Initiated/Reviewed/Updated: Yes - My Orders Last 24 Hours: My Active Orders 11/02/19 17:58 Up ad Ludy [RC] ASDIRECTED Ondansetron [Zofran] 4 mg IVPUSH Q4H PRN Resuscitation Status Routine 11/02/19 17:59 Antiembolic Devices [RC] PER UNIT ROUTINE Oxygen Therapy [RC] PRN VTE/DVT Education [RC] PER UNIT ROUTINE Vital Signs [RC] Q4H Sequential Compression Device [OM.PC] Per Unit Routine 11/02/19 18:06 Telemetry Monitoring [Cardiac Monitoring] [RC] Q8H 11/02/19 18:18 Consult to Wound Care Services [CONS] Routine 11/02/19 18:19 Accu Check [Blood Glucose Check, Bedside] [RC] TIDAC 11/02/19 18:27 Consult to Physician [CONS] Stat 11/02/19 18:29 Notify Provider Consults [RC] ASDIRECTED 11/02/19 18:54 Telemetry Monitoring [Cardiac Monitoring] [RC] . DIRECTED 11/02/19 19:31 Communication Order [RC] ROUTINE 11/02/19 19:54 Morphine 2 mg IVPUSH Q4H PRN 11/02/19 Dinner Nothing per Oral Now Diet [DIET] 11/03/19 04:00 H PYLORI STOOL ANTIGEN [MREF] Urgent 11/03/19 07:30 Insulin Aspart [NovoLOG] See Protocol SUBCUT TIDAC Levothyroxine 75 mcg PO ACBREAKFAST 11/03/19 07:46 Intake and Output Strict [RC] ASDIRECTED 11/03/19 07:51 Weight Daily [Height and Weight] [RC] DAILY 11/03/19 09:00 Insulin Detemir [Levemir] 10 unit SUBCUT BID Metoprolol Succinate [Toprol XL] 50 mg PO DAILY Pantoprazole [ProTONIX IV] 40 mg Sodium Chloride 0.9% [Normal Saline] 10 ml IV BID - Plan Plan:: Assessment and Plan: 1. Acute symptomatic anemia secondary to GI bleed S/P transfusion of 2 units PRBC's: - Post-transfusion hgb is 10.0. Continue IV PPI. Plavix held on admission. Will recheck hgb later this afternoon. - Per general surgery: Patient not a candidate for endoscopy at this time due to recent history of RI 6 weeks ago even despite patient's reported black stool. Recommended keeping hgb above 10.0, maintain 2 large bore IV access, strict I/O's and hold plavix. Emergent endoscopy only indicated if patient hemodynamically unstable or has graham bleeding. General surgery to sign off for now. - Contacted patient's [facility] tender in Dr. Loza in [place], [place] who recommended: holding plavix for now, starting aspirin 81 mg qd, continue PPI and follow-up with Dr. Loza in [place] on 11/06/18 at 11 AM and to be NPO for possible endoscopy. 2. Right foot ulcers: - Consult wound care. - Will require outpatient podiatry follow-up. 3. Diabetes mellitus type 2: - ADA diet, SSI. 4. Past medical history of RI s/p CABG with stents, CHF and HTN. 5. DVT prophylaxis: SCD's.
[2019-11-03] MEDS ORDERED: Rosuvastatin 10 MG Tab PO SCH (11:30)
[2019-11-03] MEDS ORDERED: Lisinopril 10 MG Tab PO SCH (11:30)
[2019-11-03] MEDS ORDERED: Gabapentin 300 MG Cap PO SCH (11:30)
[2019-11-03] MEDS ORDERED: Aspirin 81 MG Tab.Chew PO SCH (11:45)
--- NOTE | 2019-11-03 17:45 | PCM.DCSUM1 ---
Discharge Summary - Hospital Course Free Text/Narrative:: 64-year-old male admitted for acute symptomatic anemia secondary to GI bleed. He has a PMH of TX s/p CABG with stents, CHF, DM type 2 and HTN. On admission, patient's hgb was 7.7 and complained of worsening SOB. He was transfused with 2 units of PRBC's and started on PPI. His plavix was held on admission. Post- transfusion hgb was 10.0 and repeat hgb on the evening of discharge was 9.6. General surgery consulted and stated patient was not a candidate for endoscopy at this time due to recent TX 6 approximately 6 weeks and patient is hemodynamically stable with no active graham bleeding. 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 Loza was contacted who recommended continuing to hold plavix, start patient on baby aspirin qd, continue PPI and follow-up with him in [place] on 11/07/19 while being NPO for possible admission to hospital for endoscopy. Patient reported that he currently takes aspirin 325 mg daily so he was discharged on this same dose and started on omeprazole 40 mg BID. With the exception of Plavix, all his other home medications were resumed. Patient given script to recheck his CBC on 11/07/19. Patient advised to go to ER if he develops bloody stools. Furthermore, for his right foot ulcer, patient will require follow-up with podiatry as an outpatient. Also advised to follow-up with his PCP. - Discharge Data Discharge Date: 11/03/19 Discharge Disposition: Home, Self-Care 01 Condition: Stable - Referral to Home Health Primary Care Physician: PCP None - Patient Summary/Data Consults: Consultations 11/02/19 18:18 Consult to Wound Care Services [CONS] Routine 11/02/19 18:27 Consult to Physician [CONS] Stat - Patient Instructions Diet: Heart Healthy Diet, Low Sodium, Diabetic Diet Fluid Restriction: 2000 mL Activity: As Tolerated Notify Provider of: Fever, Increased Pain, Swelling and Redness, Drainage, Nausea and/or Vomiting Other/Special Instructions: Bloody stools - Discharge Plan *PRESCRIPTION DRUG MONITORING PROGRAM REVIEWED*: Not Applicable *COPY OF PRESCRIPTION DRUG MONITORING REPORT IN PATIENT NUBIA: Not Applicable Prescriptions/Med Rec: Aspirin 325 mg PO DAILY 30 Days #30 tab Omeprazole 40 mg PO BID 30 Days #60 capsule. Home Medications: Home Meds Furosemide [Lasix] 40 mg PO BID 11/02/19 [History] Gabapentin [Neurontin] 300 mg PO BID 11/02/19 [History] Insulin Detemir [Levemir] 10 unit SQ BID 11/02/19 [History] Levothyroxine 75 mcg PO ACBREAKFAST 11/02/19 [History] Levothyroxine 75 mcg PO ACBREAKFAST 11/02/19 [History] Lisinopril [Zestril] 40 mg PO DAILY 11/02/19 [History] Metoprolol Succinate 50 mg PO DAILY 11/02/19 [History] Rosuvastatin [Crestor] 10 mg PO DAILY 11/02/19 [History] glyBURIDE [Glyburide] 10 mg PO DAILY 11/02/19 [History] metFORMIN [Glucophage] 1,000 mg PO BIDMEALS 11/02/19 [History] Aspirin 325 mg PO DAILY 30 Days #30 tab 11/03/19 [Rx] Omeprazole 40 mg PO BID 30 Days #60 capsule. 11/03/19 [Rx] Oxygen Therapy Mode: Room Air Patient Handouts: Upper Gastrointestinal Bleeding Referrals: Sesar Tompkins MD [Resident] - 11/15/19 2:00 pm Segundo Loza MD [Ordering Only Provider] - 11/07/19 11:00 am (You must go to this appointment. Arrive 15 minutes early with a photo ID and insurance card. ) - Discharge Summary/Plan Comment DC Time >30 min.: No - Patient Data Vitals - Most Recent: Last Vital Signs Temp 97.0 F 11/03/19 16:00 Pulse 60 11/03/19 16:00 Resp 16 11/03/19 16:00 BP 152/67 H 11/03/19 16:00 Pulse Ox 96 11/03/19 16:00 Weight - Most Recent: 200 lb 9.93 oz I&O - Last 24 hours: Intake & Output 11/03/19 11/03/19 11/03/19 06:59 14:59 22:59 Intake Total 692 Output Total 1400 Balance -708 Lab Results - Last 24 hrs: Laboratory Results - last 24 hr 11/02/19 11/02/19 11/03/19 Range/Units 17:06 23:19 04:52 WBC 6.41 (4.0-11.0) K/uL RBC 4.01 L (4.50-5.90) M/uL Hgb 10.0 L (13.0-17.0) g/dL Hct 32.9 L (38.0-50.0) % MCV 82.0 (80.0-98.0) fL MCH 24.9 L (27.0-32.0) pg MCHC 30.4 L (31.0-37.0) g/dL RDW Std Deviation 55.3 (28.0-62.0) fl RDW Coeff of Kelton 19 H (11.0-15.0) % Plt Count 263 (150-400) K/uL MPV 8.60 (7.40-12.00) fL Neut % (Auto) 56.6 (48.0-80.0) % Lymph % (Auto) 28.1 (16.0-40.0) % Bulloch % (Auto) 9.2 (0.0-15.0) % Eos % (Auto) 5.5 (0.0-7.0) % Baso % (Auto) 0.6 (0.0-1.5) % Neut # (Auto) 3.6 (1.4-5.7) K/uL Lymph # (Auto) 1.8 (0.6-2.4) K/uL Bulloch # (Auto) 0.6 (0.0-0.8) K/uL Eos # (Auto) 0.4 (0.0-0.7) K/uL Baso # (Auto) 0.0 (0.0-0.1) K/uL Nucleated RBC % 0.0 /100WBC Nucleated RBCs # 0 K/uL Sodium (136-148) mmol/L Potassium (3.5-5.1) mmol/L Chloride (98-107) mmol/L Carbon Dioxide (21.0-32.0) mmol/L BUN (7.0-18.0) mg/dL Creatinine (0.8-1.3) mg/dL Est Cr Clr Drug Dosing mL/min Estimated GFR (MDRD) ml/min Glucose (74-106) mg/dL POC Glucose 97 (60-110) mg/dL Calcium (8.5-10.1) mg/dL Iron (50-175) ug/dL TIBC (250-450) ug/dL % Saturation (20-55) % Transferrin (200-400) ug/dL Ferritin (26-388) ng/mL Total Bilirubin (0.2-1.0) mg/dL AST (15-37) IU/L ALT (14-63) IU/L Alkaline Phosphatase (46-116) U/L B-Natriuretic Peptide (<100) PG/ML Total Protein (6.4-8.2) g/dL Albumin (3.4-5.0) g/dL Globulin (2.6-4.0) g/dL Albumin/Globulin Ratio (0.9-1.6) Blood Type A POSITIVE Antibody Screen NEGATIVE Crossmatch See Detail 11/03/19 11/03/19 11/03/19 Range/Units 04:52 04:52 04:52 WBC (4.0-11.0) K/uL RBC (4.50-5.90) M/uL Hgb (13.0-17.0) g/dL Hct (38.0-50.0) % MCV (80.0-98.0) fL MCH (27.0-32.0) pg MCHC (31.0-37.0) g/dL RDW Std Deviation (28.0-62.0) fl RDW Coeff of Kelton (11.0-15.0) % Plt Count (150-400) K/uL MPV (7.40-12.00) fL Neut % (Auto) (48.0-80.0) % Lymph % (Auto) (16.0-40.0) % Bulloch % (Auto) (0.0-15.0) % Eos % (Auto) (0.0-7.0) % Baso % (Auto) (0.0-1.5) % Neut # (Auto) (1.4-5.7) K/uL Lymph # (Auto) (0.6-2.4) K/uL Bulloch # (Auto) (0.0-0.8) K/uL Eos # (Auto) (0.0-0.7) K/uL Baso # (Auto) (0.0-0.1) K/uL Nucleated RBC % /100WBC Nucleated RBCs # K/uL Sodium 145 (136-148) mmol/L Potassium 3.4 L (3.5-5.1) mmol/L Chloride 106 (98-107) mmol/L Carbon Dioxide 32.1 H (21.0-32.0) mmol/L BUN 13 (7.0-18.0) mg/dL Creatinine 1.1 (0.8-1.3) mg/dL Est Cr Clr Drug Dosing 64.77 mL/min Estimated GFR (MDRD) > 60.0 ml/min Glucose 110 H (74-106) mg/dL POC Glucose (60-110) mg/dL Calcium 8.9 (8.5-10.1) mg/dL Iron 113 (50-175) ug/dL TIBC 421 (250-450) ug/dL % Saturation 26.84 (20-55) % Transferrin 295 (200-400) ug/dL Ferritin 12 L (26-388) ng/mL Total Bilirubin 1.3 H (0.2-1.0) mg/dL AST 25 (15-37) IU/L ALT 34 (14-63) IU/L Alkaline Phosphatase 53 (46-116) U/L B-Natriuretic Peptide 508 H (<100) PG/ML Total Protein 6.8 (6.4-8.2) g/dL Albumin 3.5 (3.4-5.0) g/dL Globulin 3.3 (2.6-4.0) g/dL Albumin/Globulin Ratio 1.1 (0.9-1.6) Blood Type Antibody Screen Crossmatch 11/03/19 11/03/19 11/03/19 Range/Units 05:06 11:43 15:55 WBC (4.0-11.0) K/uL RBC (4.50-5.90) M/uL Hgb 9.6 L (13.0-17.0) g/dL Hct 32.1 L (38.0-50.0) % MCV (80.0-98.0) fL MCH (27.0-32.0) pg MCHC (31.0-37.0) g/dL RDW Std Deviation (28.0-62.0) fl RDW Coeff of Kelton (11.0-15.0) % Plt Count (150-400) K/uL MPV (7.40-12.00) fL Neut % (Auto) (48.0-80.0) % Lymph % (Auto) (16.0-40.0) % Bulloch % (Auto) (0.0-15.0) % Eos % (Auto) (0.0-7.0) % Baso % (Auto) (0.0-1.5) % Neut # (Auto) (1.4-5.7) K/uL Lymph # (Auto) (0.6-2.4) K/uL Bulloch # (Auto) (0.0-0.8) K/uL Eos # (Auto) (0.0-0.7) K/uL Baso # (Auto) (0.0-0.1) K/uL Nucleated RBC % /100WBC Nucleated RBCs # K/uL Sodium (136-148) mmol/L Potassium (3.5-5.1) mmol/L Chloride (98-107) mmol/L Carbon Dioxide (21.0-32.0) mmol/L BUN (7.0-18.0) mg/dL Creatinine (0.8-1.3) mg/dL Est Cr Clr Drug Dosing mL/min Estimated GFR (MDRD) ml/min Glucose (74-106) mg/dL POC Glucose 104 208 H (60-110) mg/dL Calcium (8.5-10.1) mg/dL Iron (50-175) ug/dL TIBC (250-450) ug/dL % Saturation (20-55) % Transferrin (200-400) ug/dL Ferritin (26-388) ng/mL Total Bilirubin (0.2-1.0) mg/dL AST (15-37) IU/L ALT (14-63) IU/L Alkaline Phosphatase (46-116) U/L B-Natriuretic Peptide (<100) PG/ML Total Protein (6.4-8.2) g/dL Albumin (3.4-5.0) g/dL Globulin (2.6-4.0) g/dL Albumin/Globulin Ratio (0.9-1.6) Blood Type Antibody Screen Crossmatch 11/03/19 Range/Units 16:11 WBC (4.0-11.0) K/uL RBC (4.50-5.90) M/uL Hgb (13.0-17.0) g/dL Hct (38.0-50.0) % MCV (80.0-98.0) fL MCH (27.0-32.0) pg MCHC (31.0-37.0) g/dL RDW Std Deviation (28.0-62.0) fl RDW Coeff of Kelton (11.0-15.0) % Plt Count (150-400) K/uL MPV (7.40-12.00) fL Neut % (Auto) (48.0-80.0) % Lymph % (Auto) (16.0-40.0) % Bulloch % (Auto) (0.0-15.0) % Eos % (Auto) (0.0-7.0) % Baso % (Auto) (0.0-1.5) % Neut # (Auto) (1.4-5.7) K/uL Lymph # (Auto) (0.6-2.4) K/uL Bulloch # (Auto) (0.0-0.8) K/uL Eos # (Auto) (0.0-0.7) K/uL Baso # (Auto) (0.0-0.1) K/uL Nucleated RBC % /100WBC Nucleated RBCs # K/uL Sodium (136-148) mmol/L Potassium (3.5-5.1) mmol/L Chloride (98-107) mmol/L Carbon Dioxide (21.0-32.0) mmol/L BUN (7.0-18.0) mg/dL Creatinine (0.8-1.3) mg/dL Est Cr Clr Drug Dosing mL/min Estimated GFR (MDRD) ml/min Glucose (74-106) mg/dL POC Glucose 261 H (60-110) mg/dL Calcium (8.5-10.1) mg/dL Iron (50-175) ug/dL TIBC (250-450) ug/dL % Saturation (20-55) % Transferrin (200-400) ug/dL Ferritin (26-388) ng/mL Total Bilirubin (0.2-1.0) mg/dL AST (15-37) IU/L ALT (14-63) IU/L Alkaline Phosphatase (46-116) U/L B-Natriuretic Peptide (<100) PG/ML Total Protein (6.4-8.2) g/dL Albumin (3.4-5.0) g/dL Globulin (2.6-4.0) g/dL Albumin/Globulin Ratio (0.9-1.6) Blood Type Antibody Screen Crossmatch Med Orders - Current: Current Medications Acetaminophen (Tylenol) 650 mg PO Q6H PRN PRN Reason: Pain Last Admin: 11/03/19 00:04 Dose: 650 mg Aspirin (Aspirin) 81 mg PO DAILY [facility] Last Admin: 11/03/19 11:54 Dose: 81 mg Dextrose/Water (Dextrose 50% In Water) 25 ml IVPUSH ONETIME PRN PRN Reason: Hypoglycemia Furosemide (Lasix) 40 mg PO BID [facility] Gabapentin (Neurontin) 300 mg PO BID [facility] Last Admin: 11/03/19 11:54 Dose: 300 mg Pantoprazole Sodium 40 mg/ (Sodium Chloride) 10 mls @ 300 mls/hr IV BID [facility] Last Admin: 11/03/19 08:56 Dose: 300 mls/hr Insulin Aspart (Novolog) 0 unit SUBCUT TIDAC [facility]; Protocol Last Admin: 11/03/19 11:55 Dose: 2 units Insulin Detemir (Levemir) 10 unit SUBCUT BID [facility] Last Admin: 11/03/19 09:11 Dose: Not Given Levothyroxine Sodium (Levothyroxine) 75 mcg PO ACBREAKFAST [facility] Last Admin: 11/03/19 08:56 Dose: 75 mcg Lisinopril (Prinivil) 40 mg PO DAILY [facility] Last Admin: 11/03/19 11:54 Dose: 40 mg Metoprolol Succinate (Toprol Xl) 50 mg PO DAILY [facility] Last Admin: 11/03/19 08:54 Dose: 50 mg Morphine Sulfate (Morphine) 2 mg IVPUSH Q4H PRN PRN Reason: Pain Last Admin: 11/03/19 16:16 Dose: 2 mg Ondansetron HCl (Zofran) 4 mg IVPUSH Q4H PRN PRN Reason: Nausea Last Admin: 11/02/19 21:08 Dose: 4 mg Rosuvastatin Calcium (Crestor) 10 mg PO DAILY [facility] Last Admin: 11/03/19 11:54 Dose: 10 mg Discontinued Medications Furosemide (Lasix) 20 mg IVPUSH ONETIME ONE Stop: 11/02/19 18:37 Last Admin: 11/02/19 23:46 Dose: Not Given Furosemide (Lasix) 20 mg IVPUSH ONETIME ONE Stop: 11/02/19 18:38 Last Admin: 11/03/19 03:46 Dose: 20 mg Furosemide (Lasix) 20 mg IVPUSH Q4H [facility]ANINE Stop: 11/03/19 03:31 Last Admin: 11/03/19 04:02 Dose: Not Given Gabapentin (Neurontin) 300 mg PO BID [facility] Hydralazine HCl (Apresoline) 20 mg IVPUSH ONETIME ONE Stop: 11/02/19 21:46 Last Admin: 11/03/19 01:25 Dose: Not Given Pantoprazole Sodium 80 mg/ (Sodium Chloride) 10 mls @ 300 mls/hr IV NOW ONE Stop: 11/02/19 18:18 Last Admin: 11/02/19 20:02 Dose: 300 mls/hr Influenza Virus Vaccine (Pharmacy To Dose - Influenza Vaccine) 1 each IM ONETIME ONE Stop: 11/02/19 20:36 Influenza Virus Vaccine (Fluzone High-Dose Syringe) 180 mcg IM .ONCE ONE Stop: 11/03/19 09:01 Pneumococcal Polyvalent Vaccine (Pneumovax 23) 25 mcg IM .ONCE ONE Stop: 11/03/19 09:01
[2019-11-03] MEDS ORDERED: Pneumococcal Polyvalent-23 Vaccine 0.5 ML SDV IM ONE (18:13)
[2019-11-03] MEDS ORDERED: Furosemide 40 MG Tab PO SCH (21:00)
== END 2019-11-03 18:40 | disposition home or self-care (01) ==
LOC: MW.ED 15:03 → MW.MS 18:23
PROVIDERS: ADMIT Student in an Organized Health Care Education/Training Program; ATTEND Student in an Organized Health Care Education/Training Program
DX: K92.2 Gastrointestinal hemorrhage, unspecified (principal); D62 Acute posthemorrhagic anemia; I11.0 Hypertensive heart disease with heart failure; I50.9 Heart failure, unspecified; E11.621 Type 2 diabetes mellitus with foot ulcer; L97.519 Non-pressure chronic ulcer of other part of right foot with unspecified severity; I25.2 Old myocardial infarction; Z23 Encounter for immunization; Z79.02 Long term (current) use of antithrombotics/antiplatelets; Z79.82 Long term (current) use of aspirin; Z79.4 Long term (current) use of insulin; Z79.899 Other long term (current) drug therapy; Z88.8 Allergy status to other drugs, medicaments and biological substances; Z91.040 Latex allergy status; Z91.09 Other allergy status, other than to drugs and biological substances; Z95.1 Presence of aortocoronary bypass graft
CPT/HCPCS: 36415; 36430; 71046; 73620; 80053; 82728; 82962; 83550; 83880; 84484; 85014; 85018; 85025; 85610; 86850; 86900; 86901; 86920; 86921; 86922; 87338; 90662; 90732; 93005; 96374; 96375; 96376; A9270; C9113; G0008; G0009; G0378; J1815; J2270; J2405; J7050; P9016; 99285-25